=== PATIENT | male | born 1950 | race Caucasian/White ===

== ENCOUNTER 2017-10-16 09:17 | Day surgery (SDC) | payer MEDICARE ==
[~2017-10-16] VITALS: Ht 175.3 cm; Wt 103.7 kg
[~2017-10-16 09:17] MED LIST: AMIO200T PO; ASPI-516 CHEW; FAMO40TA PO; GABA300C5 PO; LISI20TA3 PO; MILK140C PO; MULTTAB67 PO; PRAV10TA PO
[2017-10-16] MEDS ORDERED: IOHEXOL 350 MG/ML 100 ML BTL (for Cath Lab) OTHER ONE (09:18)
[2017-10-16] MEDS ORDERED: APIX5TAB PO (09:45)
[2017-10-16] MEDS ORDERED: ATOR20TA15 PO (09:45)
[2017-10-16] MEDS ORDERED: METO25TA3 PO (09:45)
[2017-10-16 09:46] VITALS: BP 151/95; PULSE 59; RESP 18; TEMP 98.3; O2SAT 97
[2017-10-16 09:51] LABS: AUTOMATED NEUTROPHIL # 3.4 TH/MM3 (1.8-7.7); BASOPHIL # 0.1 TH/MM3 (0-0.2); BASOPHIL % 0.9 % (0.0-2.0); EOSINOPHIL # 0.5 TH/MM3 (0-0.4); EOSINOPHIL % 7.7 % (0.0-4.0); HEMATOCRIT 45.8 % (39.0-51.0); HEMOGLOBIN 15.7 GM/DL (13.0-17.0); LYMPH % 21.4 % (9.0-44.0); LYMPHOCYTE # 1.2 TH/MM3 (1.0-4.8); MEAN CELL VOLUME 92.4 FL (80.0-100.0); MEAN CORPUSCULAR HEMOGLOBIN 31.8 PG (27.0-34.0); MEAN CORPUSCULAR HGB CONC 34.4 % (32.0-36.0); MEAN PLATELET VOLUME 9.8 FL (7.0-11.0); MONO % 11.7 % (0.0-8.0); MONOCYTE # 0.7 TH/MM3 (0-0.9); NEUT % 58.3 % (16.0-70.0); PLATELET COUNT 166 TH/MM3 (150-450); RED BLOOD COUNT 4.96 MIL/MM3 (4.50-5.90); RED CELL DISTRIBUTION WIDTH 13.3 % (11.6-17.2); WHITE BLOOD COUNT 5.8 TH/MM3 (4.0-11.0)
[2017-10-16 10:01] LABS: INTERNATIONAL NORMALIZED RATIO 1.1 RATIO; PROTHROMBIN TIME - PATIENT 11.4 SEC (9.8-11.6)
[2017-10-16 10:08] LABS: BICARBONATE 26.8 MEQ/L (21.0-32.0); CALCIUM 8.8 MG/DL (8.5-10.1); CREATININE 1.02 MG/DL (0.60-1.30)
[2017-10-16] MEDS ORDERED: NS 1000P @30 MLS/HR (KVO) IV SCH (10:45)
[2017-10-16] MEDS ORDERED: MIDAZOLAM HCL 2 MG/2 ML VIAL ONE (12:04)
--- NOTE | 2017-10-16 13:06 | CATHPROC ---
[facility] HIS Report Study Information Study Number Admission Scheduled Start Study Start [id number] Oct 16 2017 9:17AM 10/16/2017 Oct 16 2017 11:54AM [place] [facility] Cardiac Catheterization Admit Source Facility Department Other [facility] Physician and Clinical Staff Initial Paul Wilkinson Riveter Portable Machine Vanessa Mukherjee,RN Recorder Maris Banks,RT(R) (BS) Scrub Raquel SinhaRT(R) Procedures Performed Procedure Location (Site) Vessel Name Angiogram LV LV Ventricle Coronary Angiograms LCA Left Coronary L Heart Cath Equipment Time Special Trackwork Blacksmith Description Size Mfg Part Number Used/Scraped TRANSDUCER, TRUWAVE [id number] 12:06 BAPTISTE COURTNEY * Used W/STOCKCOCK *[id number] 534-545T *[id number] 534-545T *[id number] 534-548T *[id number] 534-520T *[id number] [id number] *[id number] 12:06 MEDLINE [employer] PACK, CCL CUSTOM * Used *[id number] 12:06 [employer]ig PACER PEN, SKIN DUAL W/ RULER * Used *[id number] 12:06 Ufree WIRE, 3MMJ .035 180CM 180CM Used *[id number] PROBE COVER, STERILE [id number] 12:06 [employer] * Used ULTRASOUND W/ GEL *[id number] 12:06 NAMIC MANIFOLD, 4 PORT * Used *[id number] 12:06 NAMIC TUBING, HIGH PRESSURE 48" 48" Used *[id number] 12:06 NYCOMED OMNIPAQUE, 350 MG, 150ML 150ML [id number] Used 12:35 NYCOMED OMNIPAQUE, 350 MG, 50ML 50ML [id number] Used [id number] 12:06 SNYDER MEDICAL BLANKET,WARM AIR CCL * Used *[id number] 12:06 [employer] MEDICAL SHEATH, FR5 TERUMO (10CM) FR 5 Used *[id number] History: Current Medications Medication Dosage/Unit Route Frequency Last Date/Time Taken Statins (any) Beta Reji History: Allergies Allergy Reaction No Known Drug Allergies History: Risk Factors Family History of Hypertension Dyslipidemia Previous SD Previous Heart Failure Premature CAD Yes Yes Yes No No Prior Valve Prior PCI Prior PCIDate Prior CABG Surgery No Yes 08/31/2004 No Cerebrovascular Peripheral Artery Chronic Lung On Dialysis Diabetes Disease Disease Disease No No No No No History: Stress Tests Stress or Imaging Studies Performed Yes Standard Exercise Stress Test No Stress Echo No Stress Test SPECT Stress Test SPECT Result Yes Positive Stress Test CMR No Cardiac CTA Coronary Calcium Score No No History: Other Current Smoker Method Quit Packs a Day Years Used Pack Years No Cigarettes 45 Years Ago 1 5 5 Labs Hgb (g/dl) Hct (%) WBC (l/cumm) Platelets (thousands) 11.60-17.00 35.00-51.00 4.00-11.00 150.00-450.00 15.7 45.8 5.8 166 Glucose (mg/dl) BUN (mg/dl) Creatinine (mg/dl) BUN:Creatinine (1:x) 74.00-106.00 7.00-18.00 0.50-1.30 10.00-20.00 96 16 1.0 16 Na (meq/l) K (meq/l) 136.00-145.00 3.50-5.10 141 4.2 INR (PTT:PT) 0.90-1.10 1.1 CPK-MB (ng/ML) 0.50-3.60 Not Drawn Medication Medication Total Dose (Bolus/Oral) Medication Total Dosage/Unit 1% XYLOCAINE 20 mL FENTANYL 100 mcg VERSED 4 mg Medications (Bolus/Oral) Medication Time Given Dosage/Unit Administered By Reason VERSED 10/16/2017 12:16:36 PM 2 mg Quadrat, [place] 2 mg VERSED given in lab by Paul Mattson in Left Antecubital via Peripheral IV. FENTANYL 10/16/2017 12:17:13 PM 50 mcg Quadrat, [place] 50 mcg FENTANYL given in lab by Paul Mattson in Left Antecubital via Peripheral IV. VERSED 10/16/2017 12:28:25 PM 2 mg Quadrat, [place] 2 mg VERSED given in lab by Paul Mattson in Left Antecubital via Peripheral IV. FENTANYL 10/16/2017 12:29:41 PM 50 mcg Quadrat, [place] 50 mcg FENTANYL given in lab by Paul Mattson in Left Antecubital via Peripheral IV. 1% XYLOCAINE 10/16/2017 12:30:42 PM 20 mL Quadrat, Viniciuskar 20 mL 1% XYLOCAINE given in lab by Paul Mattson in Right Groin via Subcutaneous. Medication (Drip) Medication Time Given Dosage/Unit Concentration/Unit Diluent (ml) Solution IV Solutions 10/16/2017 11:56:35 AM 0 mL (IV) 500 NaCl .9 IV Solutions given in lab by Vanessa Mukherjee, RN in Left Antecubital via Peripheral IV. Pump/Drip Flow = 30 ml/hr using NaCl .9. Initial Case Assessment Cardiovascular HR Rhythm NIBP Chest Pain 67 reg 151/98 0 Edema Present Skin color Skin None Normal Warm Dry Circulatory - Right Pulses Dorsalis Pedis Femoral 2 2 Scale (0,1,2,3,4,d) Circulatory - Left Pulses Dorsalis Pedis Femoral 1 2 Scale (0,1,2,3,4,d) Circulatory - Lower Extremities Color Lower Right Color Lower Left Normal Normal Neurological State Oriented to time-place- Alert Moves all extremities person Respiration - General Respiration Rate SpO2 (%) (B/min) 20 96 Chronological Log Time Study Chronological Log 11:55:12 Patient arrived via Bed. 11:55:16 Patient Name, D.O.B, / Armband Verified By R.N. 11:56:18 Consent signed by the physician and the patient and verified by the [facility] staff. 11:56:19 Pre-op and post- op instructions given; patient acknowledges understanding of instructions. 11:56:27 Presedation assessment performed by [facility] RN. 11:56:30 Patient has been NPO for More than 6Hrs. 11:56:31 Skin Breakdown none per pt 11:56:33 Patient Warmer Placed on the Table. 11:56:34 Delphine Prominences Protected 11:56:35 A # 20 IV was noted in the Forearm (left). Grade = 0 IV Solutions given in lab by Vanessa Mukherjee, RN in Left Antecubital via Peripheral IV. Pump/Dri p Flow = 30 ml/hr using 11:56:35 NaCl .9. 11:56:36 History and physical on the chart or being dictated. Assessment: Initial Case, HR=67 BPM, Rhythm=reg, ARLT=326/98 mmhg, Chest Pain=0, Edema=None, Co poncho=Normal, Skin = Warm, Dry Right Pulses: Perez Ped=2, Femoral=2 Left Pulses: Perez Ped=1, Femoral=2 11:56:37 Lower Right Extremities: Color=Normal Lower Left Extremities: Color=Normal Neurological: State=Alert, Ox3, AVERY Respiration: Resp=20 B/min, SpO2=96 % Vitals capture started with the following parameters, Patient=Adult, Interval=5 min, Initial Pr adozek=362 mmHg, 11:59:46 Deflation Rate=5 mmHg, Cuff placed on Left Arm 12:00:30 FPQI=109/97 mmhg, SpO2=97.0 %, Pain=0, Silviano=10, Kinney=2 12:03:55 Bilateral groins prepped with 2% chlorhexidine, and draped after a 3 minute waiting time. 12:05:25 HR=69 bpm, RLXU=121/96 mmhg, SpO2=96.0 %, Resp=26 B/min, Pain=0, Silviano=10, Kinney=2 12:07:35 MD paged 12:10:26 HR=64 bpm, ONYB=523/97 mmhg, SpO2=97.0 %, Resp=15 B/min, Pain=0, Silviano=10, Kinney=2 12:14:55 Pressure channel 1 zeroed. 12:15:25 HR=65 bpm, GLFX=000/95 mmhg, SpO2=98.0 %, Resp=19 B/min, Pain=0, Silviano=10, Kinney=2 12:15:41 Reference ECG taken 12:16:36 2 mg VERSED given in lab by Paul Mattson in Left Antecubital via Peripheral IV. 12:17:13 50 mcg FENTANYL given in lab by Paul Mattson in Left Antecubital via Peripheral IV. 12:20:28 HR=64 bpm, LUZR=320/92 mmhg, SpO2=95.0 %, Resp=17 B/min, Pain=0, Silviano=10, Kinney=2 12:25:25 HR=64 bpm, VOMO=977/93 mmhg, SpO2=99.0 %, Resp=15 B/min, Pain=0, Silviano=10, Kinney=2 12:26:16 MD arrived 12:28:25 2 mg VERSED given in lab by Paul Mattson in Left Antecubital via Peripheral IV. 12:29:41 50 mcg FENTANYL given in lab by Paul Mattson in Left Antecubital via Peripheral IV. Time Out. Correct patient, correct procedure, correct physician, power injector loaded with con trast with surgical team 12:30:22 present. Time Out Concurred by MD and individual staff in procedure. 12:30:24 HR=66 bpm, CMYV=208/94 mmhg, SpO2=96.0 %, Resp=5 B/min, Pain=0, Silviano=10, Kinney=2 12:30:36 Case Start 12:30:42 20 mL 1% XYLOCAINE given in lab by Paul Mattson in Right Groin via Subcutaneous. 12:32:37 Access site was Right Femoral Artery using ultrasound 12:32:48 A SHEATH, FR5 TERUMO (10CM) FR 5 was advanced into the Fem Art (right) using the Percutaneo us technique. A PIGTAIL ANG. INFINITI CATHETER FR 5 was advanced over a wire. OMNIPAQUE, 350 MG, 150ML 150ML was used 12:32:54 for injections. Recorded Pressure: LV, HR=67, Condition=Condition 1 12:34:05 (Left Ventricle) LV 133/10/19 12:34:46 The LV was injected at 10 cc/sec for a total of 30. OMNIPAQUE, 350 MG, 50ML 50ML used. 12:35:29 HR=65 bpm, SZTP=687/82 mmhg, SpO2=94.0 %, Resp=14 B/min, Pain=0, Silviano=10, Kinney=2 Recorded Pressure: LV, Ao, HR=65, Condition=Condition 1 12:35:33 (Left Ventricle) LV 123/11/21, (Aorta) Ao 132/71/99 12:35:57 Catheter was removed A JL 4.0 INFINITI CATHETER FR 5 was advanced over a wire. OMNIPAQUE, 350 MG, 150ML 150ML was us ed for 12:35:58 injections. Recorded Pressure: Ao, HR=66, Condition=Condition 1 12:36:33 (Aorta) Ao 138/77/104 12:38:10 The LCA was injected and visualized at various angles. OMNIPAQUE, 350 MG, 150ML 150ML used . 12:39:31 Catheter was removed A AR MOD INFINITI CATHETER FR 5 was advanced over a wire. OMNIPAQUE, 350 MG, 150ML 150ML was us ed for 12:39:32 injections. 12:40:24 HR=76 bpm, HYWZ=367/89 mmhg, SpO2=97.0 %, Resp=13 B/min, Pain=0, Silviano=10, Kinney=2 12:41:35 Catheter was removed A AL 1 INFINITI CATHETER FR 5 was advanced over a wire. OMNIPAQUE, 350 MG, 150ML 150ML was used for 12:43:27 injections. 12:44:41 The LCA was injected and visualized at various angles. OMNIPAQUE, 350 MG, 150ML 150ML used . 12:45:06 Catheter was removed 12:45:27 HR=70 bpm, KWDE=148/88 mmhg, SpO2=97.0 %, Resp=14 B/min, Pain=0, Silviano=10, Kinney=2 12:45:27 Case End 12:45:58 Catheter(s) removed without difficulty 12:46:03 No case complications noted. 12:46:06 Bedside Report will be given. 12:46:12 A Left Heart Cath was performed. 12:46:21 An injection in the Fem Art (right) was made through the SHEATH, FR5 TERUMO (10CM) FR 5. 12:50:26 HR=69 bpm, HVUF=898/91 mmhg, SpO2=98.0 %, Resp=15 B/min, Pain=0, Silviano=10, Kinney=2 12:50:57 DOCU called. Spoke to Marko. 12:51:15 Sterile dressing applied to site 12:55:27 HR=66 bpm, IRQT=116/91 mmhg, SpO2=98.0 %, Resp=12 B/min, Pain=0, Silviano=10, Kinney=2 12:56:40 Vitals capture stopped. 12:58:09 Patient moved to [facility] End Study - Contrast Media Used In Study Contrast Total Opened (mL) Total Used (mL) Total Wasted (mL) Omnipaque 100 100 0 End Study - Maximum Contrast Load Max Contrast Load (mL) 518.4 End Study - Radiation Exposure Fluoro Time (minutes) 3.6 End Study - Patient Disposition Complications Transferred To Interventional Outcome No [facility] Holding No attempt made
--- NOTE | 2017-10-16 23:21 | EKG ---
Date Performed: 10/16/2017 Time Performed: 09:48:38 PTAGE: 66 years EKG: Sinus bradycardia. Low QRS voltages in precordial leads Abnormal ECG NO PREVIOUS TRACING DOCTOR: Paul Mattson Interpretating Date/Time 10/16/2017 23:20:16
--- NOTE | 2017-10-18 10:22 | MA ---
cc: PAUL MATTSON DATE: 10/16/2017 INDICATION Angina pectoris, class III, intermediate probability nuclear myocardial perfusion study. PROCEDURE PERFORMED 1. Retrograde heart catheterization with left ventriculography and selective coronary angiography. 2. Moderate sedation. ACCESS SITE Right femoral artery. EQUIPMENT USED 5-Kosovan pigtail catheter, 5-Kosovan JL-4 and AR modified coronary artery catheters. MEDICATION Versed IV. Fentanyl IV. CONTRAST Omnipaque 100 ccs. COMPLICATIONS None. BLOOD LOSS Less than 10 ccs. METHOD OF HEMOSTASIS Manual compression. HEMODYNAMICS Heart rate 70 beats per minute. End-diastolic pressure 11 mmHg. Left ventricle 130/11, aorta 130/77/104. Left ventricular ejection fraction 50% wall motion, inferoapical hypokinesis, no mitral regurgitation. Coronary angiography. Left main coronary is patent. Left ventricular descending artery is totally occluded in the midportion in-stent distally to a large diagonal branch. D1 has 30% proximal stenosis. Distal LAD fills by left collaterals. Left circumflex artery is patent. OM1 patent. Right coronary is a dominant vessel which is patent. PDA patent. PLV patent. DIAGNOSIS 1. 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 2. Borderline normal left ventricular systolic function. DISPOSITION Mr. Espinosa will be monitored on telemetry after his procedure. We will continue and intensify therapy for angina and continue aggressive modification of his cardiac risk factors. He will be discharged home later today if stable. I will see him back for followup in our office after discharge. Paul Mattson MD OQ/TLL /1:04 PM /10:02 AM
== END 2017-10-16 18:00 | disposition home or self-care (01) ==
LOC: HDIC 09:17 → HDOC 09:17
PROVIDERS: ATTEND Internal Medicine Interventional Cardiology
DX: I25.110 Atherosclerotic heart disease of native coronary artery with unstable angina pectoris (principal); I48.92 Unspecified atrial flutter; I10 Essential (primary) hypertension; E78.5 Hyperlipidemia, unspecified; G47.30 Sleep apnea, unspecified; Z79.01 Long term (current) use of anticoagulants
CPT/HCPCS: 80048; 85025; 85610; 85730; 93005; 93458; 99152; 99153; C1769; C1893; J2250; J3010; Q9967